=== PATIENT | female | born 1930 | race African-American/Black ===

== ENCOUNTER 2017-02-23 08:50 | Emergency (ER) | payer MEDICARE, OTHER ==
[2017-02-23 09:00] VITALS: BP 120/50
[2017-02-23] MEDS ORDERED: DEXAMETHASONE SOD PHOS INJ 10 MG/1 ML VIAL IM ONE (10:43)
[2017-02-23] MEDS ORDERED: HYDROCODONE/ACETAMINOPHEN 5-325 MG TABLET PO ONE (10:43)
--- NOTE | 2017-02-23 10:43 | ER Document Report ---
ED Extremity Problem, Lower - General Mode of Arrival: Wheelchair Information source: Patient TRAVEL OUTSIDE OF THE U.[place]. IN LAST 30 DAYS: No - HPI Patient complains to provider of: Pain, Swelling Location: Great Toe - Left Occurred: Yesterday Where: Home Onset/Duration: Gradual, Worse Context: Other - Gout Recent injury: No - General Chief Complaint: Toe Injury Stated Complaint: TOE PAIN Notes: Patient is an 86-year-old female presenting to the emergency department accompanied by her concerned of gout in her left big toe. Patient has a history of diabetes, and has had gout in the past. Patient's primary care physician, Dr. Obrien, told her that she could stop taking her gout medicine. Patient does not take insulin to control her diabetes, just takes metformin. Patient has not taken her blood sugar yet today, but states that yesterday her blood sugar was 125. (SANJUANA HOOD) - Related Data Allergies/Adverse Reactions: No Known Allergies Allergy (Verified 02/23/17 08:56) Past Medical History - General Information source: Patient - Social History Smoking Status: Unknown if Ever Smoked Chew tobacco use (# tins/day): No Frequency of alcohol use: None Drug Abuse: None Family History: Arthritis, CAD, Hyperlipidemia, Hypertension Patient has suicidal ideation: No Patient has homicidal ideation: No - Past Medical History Cardiac Medical History: Reports: Hx Hypercholesterolemia, Hx Hypertension Denies: Hx Heart Attack Pulmonary Medical History: Denies: Hx Asthma Neurological Medical History: Denies: Hx Seizures Endocrine Medical History: Reports: Hx Diabetes Mellitus Type 2 Renal/ Medical History: Denies: Hx Peritoneal Dialysis GI Medical History: Reports: Hx Gastroesophageal Reflux Disease. Denies: Hx Hepatitis, Hx Hiatal Hernia Musculoskeltal Medical History: Reports Hx Arthritis - RA, Reports Hx Gout, Reports Hx Musculoskeletal Deformity Infectious Medical History: Denies: Hx Hepatitis Past Surgical History: Reports: Hx Hysterectomy. Denies: Hx Mastectomy, Hx Pacemaker - Immunizations Immunizations up to date: Yes Hx Diphtheria, Pertussis, Tetanus Vaccination: Yes Review of Systems - Review of Systems Constitutional: No symptoms reported EENT: No symptoms reported Cardiovascular: No symptoms reported Respiratory: No symptoms reported Gastrointestinal: No symptoms reported Genitourinary: No symptoms reported Female Genitourinary: No symptoms reported Musculoskeletal: See HPI, Other - Left foot/big toe pain. Skin: No symptoms reported Hematologic/Lymphatic: No symptoms reported Neurological/Psychological: No symptoms reported -: Yes All other systems reviewed and negative Physical Exam - General General appearance: Appears well, Alert - HEENT Head: Normocephalic, Atraumatic Eyes: Normal Pupils: PERRL - Respiratory Respiratory status: No respiratory distress Chest status: Nontender Breath sounds: Normal - Cardiovascular Rhythm: Regular Heart sounds: Normal auscultation Murmur: No - - Abdominal Inspection: Normal Tenderness: Nontender - Back Back: Normal, Nontender - Extremities General upper extremity: Normal inspection, Nontender Foot: Tender - Left big toe erythema, hot to touch, swollen. Very tender to palpation. - Neurological Neuro grossly intact: Yes Cognition: Normal Orientation: AAOx4 [place] Coma Scale Eye Opening: Spontaneous Donald Coma Scale Verbal: Oriented [place] Coma Scale Motor: Obeys Commands [place] Coma Scale Total: 15 Speech: Normal - Psychological Associated symptoms: Normal affect, Normal mood - Skin Skin Temperature: Warm Skin Moisture: Dry Skin Color: Other - See foot exam. Course - Re-evaluation Re-evalutation: 02/23/17 20:03 I personally performed the services described in the documentation, reviewed and edited the documentation which was dictated to my scribe in my presence, and it accurately records my words and actions. History presents emergency, left great toe pain. She's been taken off her allopurinol. She denies fever or chills chest pain cough shortness breath or injury. Left great toe is red hot swollen x-ray consistent with likely gouty arthritis. No superficial spreading cellulitis or open lesions to the foot crepitus or necrosis. Good pulses and perfusion distally. Patient given [place] IM Decadron 5 days worth of prednisone which I told her would increase her sugar a little bit but would not put her in DKA also gave her pain medication for primary care physician to 3 days and start taking her allopurinol. Discussed reasons for ED return sooner (TODD HOUGH) - Vital Signs Vital signs: Temp Pulse Resp BP Pulse Ox 98.3 F 71 20 120/50 L 100 02/23/17 12:02 02/23/17 12:02 02/23/17 12:02 02/23/17 12:02 02/23/17 12:02 Discharge - Discharge Clinical Impression: acute gout left MTP joint Condition: Stable Disposition: HOME, SELF-CARE Additional Instructions: Gout You have been diagnosed as having gout. Gout is a problem caused by an excess of uric acid, a natural chemical found in the body. The cause of this disease is unknown. Gout arthritis occurs when crystals of uric acid form in the joints. The big toe is the most common joint involved, but any joint can become affected. Persons with gout may also form uric acid kidney stones, resulting in flank pain and blood in the urine. Nodules of uric acid may form under the skin. The first step of treatment is to decrease the inflammation in the joint with antiinflammatory medication. Medication to lower the uric acid level in the blood may then be prescribed. This medication should be taken regularly, as any sudden change in dosage may provoke an attack of gout. Some foods, such as red meat, can provoke an attack in some gout sufferers. Call the doctor if new symptoms arise, or if you do not improve. Prescriptions: Hydrocodone/Acetaminophen [[place] 5-325 mg Tablet] 1 tab PO TID #12 tablet Prednisone [Deltasone 20 mg Tablet] 3 tab PO DAILY 5 Days Referrals: JENELLE OBRIEN MD [Primary Care Provider] - Follow up in 3-5 days Scribe Documentation - Scribe Written by Sandra:: Sanjuana Hood 02/23/2017 1212 acting as scribe for :: Dr. Hough
== END 2017-02-23 12:07 | disposition home or self-care (01) ==
LOC: ER 08:50
DX: M10.9 Gout, unspecified (principal); E11.9 Type 2 diabetes mellitus without complications
CPT/HCPCS: 99283; 96372; 73630; J1100; A9270

== ENCOUNTER → 2017-03-02 | Outpatient (CLI) | payer MEDICARE, OTHER | LOC: OD 11:08 | PROVIDERS: ATTEND Family Medicine | DX: E11.9 Type 2 diabetes mellitus without complications (principal); M19.071 Primary osteoarthritis, right ankle and foot; M77.31 Calcaneal spur, right foot; M79.89 Other specified soft tissue disorders ==

== ENCOUNTER → 2017-04-07 | Outpatient (CLI) | payer MEDICARE, OTHER | LOC: RAD 07:04 | PROVIDERS: ATTEND Family Medicine | DX: R10.9 Unspecified abdominal pain (principal); R05 Cough | CPT/HCPCS: 71250; 74176 ==

== ENCOUNTER 2017-04-20 15:28 | Day surgery (SDC) | payer MEDICARE, OTHER ==
[~2017-04-20 15:28] MED LIST: EPINEPHRINE INJ 1 MG/10 ML DISP.SYRIN ONE; FENTANYL CITRATE INJ/PF 100 MCG/2 ML AMPUL ONE; FLUMAZENIL INJ 0.5 MG/5 ML VIAL IV ONE; GLUCAGON,HUMAN RECOMB 1 MG INJ ONE; MIDAZOLAM 2 MG/2 ML INJ ONE; NALOXONE HCL INJ/PF 0.4 MG/1 ML SDV ONE
[2017-04-20 18:55] VITALS: BP 147/88
--- NOTE | 2017-04-21 09:15 | OPERATIVE REPORT E ---
Operative Report NAME: ARA LOPEZ : 1930 AGE: 87Y DATE OF SURGERY: 04/20/2017 ROOM: PREOPERATIVE DIAGNOSES: 1. Epigastric pain. 2. Gallbladder disease. POSTOPERATIVE DIAGNOSIS: Normal EGD. OPERATION: EGD. SURGEON: CLARE PANIAGUA M.D. MEDICATION: 1. Versed 1 mg. 2. Fentanyl 25 mcg IV push. TISSUE REMOVED OR ALTERED: None. DESCRIPTION OF PROCEDURE: After informed consent obtained from patient, conscious sedation was achieved. The upper endoscope was inserted into esophageal mucosa and advanced into the stomach. The duodenum was normal. The gastric, antrum, body, fundus, and esophagus were normal. The patient tolerated the procedure well. PLAN: Proceed with surgical evaluation. DICTATING PHYSICIAN: CLARE PANIAGUA M.D. [id number] PHY#: [id number] ID: [id number] JOB#: [id number] ACCT: [id number] cc:CLARE PANIAGUA M.D., SWETANG M.D. >
== END 2017-04-20 19:00 | disposition home or self-care (01) ==
LOC: END 15:28
PROVIDERS: ATTEND Internal Medicine Gastroenterology
PROC: 0DJ08ZZ Inspection of Upper Intestinal Tract, Via Natural or Artificial Opening Endoscopic (ICD-10-PCS; principal; 2017-04-20 16:15)
DX: K82.9 Disease of gallbladder, unspecified (principal); R10.13 Epigastric pain; R14.0 Abdominal distension (gaseous); I10 Essential (primary) hypertension; E11.9 Type 2 diabetes mellitus without complications; M10.9 Gout, unspecified; E66.9 Obesity, unspecified; Z79.899 Other long term (current) drug therapy; Z68.32 Body mass index [BMI] 32.0-32.9, adult; Z79.82 Long term (current) use of aspirin
CPT/HCPCS: 43235; 82962; J2250; J0171; J3010; J1610; J2310; J3490

== ENCOUNTER 2017-08-14 09:36 | Emergency (ER) | payer MEDICARE, OTHER ==
[2017-08-14] MEDS ORDERED: NORMAL SALINE 1000 ML 1,000 ML IV ONE (10:33)
--- NOTE | 2017-08-14 10:34 | ER Document Report ---
ED Medical Screen (RME) - General Chief Complaint: Black/Tarry Stools Stated Complaint: STOMACH PAIN Time Seen by Provider: 08/14/17 10:26 TRAVEL OUTSIDE OF THE [place] IN LAST 30 DAYS: No - HPI Patient complains to provider of: Left lower quadrant pain with black tarry stools - Related Data Allergies/Adverse Reactions: No Known Allergies Allergy (Verified 04/20/17 15:56) Past Medical History - Social History Chew tobacco use (# tins/day): No Frequency of alcohol use: None Drug Abuse: None - Past Medical History Cardiac Medical History: Reports: Hx Hypercholesterolemia, Hx Hypertension Denies: Hx Coronary Artery Disease, Hx Heart Attack Pulmonary Medical History: Denies: Hx Asthma, Hx Bronchitis, Hx COPD, Hx Pneumonia Neurological Medical History: Denies: Hx Cerebrovascular Accident, Hx Seizures Endocrine Medical History: Reports: Hx Diabetes Mellitus Type 2 Renal/ Medical History: Denies: Hx Peritoneal Dialysis GI Medical History: Reports: Hx Gastroesophageal Reflux Disease. Denies: Hx Hepatitis, Hx Hiatal Hernia Musculoskeltal Medical History: Reports Hx Arthritis - RA, Reports Hx Gout, Reports Hx Musculoskeletal Deformity Infectious Medical History: Denies: Hx Hepatitis Past Surgical History: Reports: Hx Hysterectomy. Denies: Hx Mastectomy, Hx Pacemaker - Immunizations Immunizations up to date: Yes Hx Diphtheria, Pertussis, Tetanus Vaccination: Yes Review of Systems - Review of Systems Gastrointestinal: Abdominal pain, Black stools Physical Exam - Vital signs Vitals: Temp Pulse Resp BP Pulse Ox 97.7 F 68 16 116/58 L 100 08/14/17 09:38 08/14/17 09:38 08/14/17 09:38 08/14/17 09:38 08/14/17 09:38 - Abdominal Inspection: Normal Distension: No distension Bowel sounds: Normal Tenderness: Nontender Course - Re-evaluation Re-evalutation: 08/14/17 10:34 Patient states no blood thinning medication except for aspirin. - Vital Signs Vital signs: Temp Pulse Resp BP Pulse Ox 97.7 F 68 16 116/58 L 100 08/14/17 09:38 08/14/17 09:38 08/14/17 10:21 08/14/17 09:38 08/14/17 09:38
[2017-08-14 10:55] LABS: ABSOLUTE EOSINOPHILS # (AUTO) 0.1 10^3/uL (0.0-0.6); ABSOLUTE LYMPHOCYTES (AUTO) 0.9 10^3/uL (0.5-4.7); ABSOLUTE MONOCYTES (AUTO) 0.4 10^3/uL (0.1-1.4); ABSOLUTE NEUT (AUTO) 2.7 10^3/uL (1.7-8.2); BASOPHILS % (AUTO) 1.2 % (0-2); EOSINOPHILS % (AUTO) 2.7 % (0-6); HEMATOCRIT 37.6 % (36.0-47.0); HGB HCT DIFFERENCE -1.6; LYMPHOCYTES % (AUTO) 21.1 % (13-45); MEAN CORPUSCULAR HEMOGLOBIN 28.5 pg (27.0-33.4); MEAN CORPUSCULAR VOLUME 89 fl (80-97); MONOCYTES % (AUTO) 10.3 % (3-13); RED BLOOD COUNT 4.22 10^6/uL (3.72-5.28); RED CELL DISTRIBUTION WIDTH 16.8 % (11.5-14.0); SEGMENTED NEUTROPHILS % (AUTO) 64.7 % (42-78); WHITE BLOOD COUNT 4.2 10^3/uL (4.0-10.5)
--- NOTE | 2017-08-14 10:56 | ER Document Report ---
ED GI Bleed / Rectal Pain - General Chief Complaint: Black/Tarry Stools Stated Complaint: STOMACH PAIN Time Seen by Provider: 08/14/17 10:26 Mode of Arrival: Ambulatory Information source: Patient TRAVEL OUTSIDE OF THE [place] IN LAST 30 DAYS: No - HPI Patient complains to provider of: Dark/tarry stools Onset: This morning - PRECEDED SEVERAL DAYS BY MILD ABD. DISCOMFORT Quality of pain: Achy, Dull Severity of symptoms: Mild Last bowel movement: THIS AM Dark Stools: Black Rectal foreign body: No Use of: denies: Warfarin, Plavix, ASA, Lovenox, Pradaxa, NSAIDS, ETOH Exacerbated by: Denies Relieved by: Denies Similar symptoms previously: No Recently seen / treated by doctor: Yes - 08/11, BEGUN ON CIPRO & METRONIDAZOLE - Related Data Allergies/Adverse Reactions: No Known Allergies Allergy (Verified 04/20/17 15:56) Past Medical History - General Information source: Patient - Social History Smoking Status: Never Smoker Chew tobacco use (# tins/day): No Frequency of alcohol use: None Drug Abuse: None Family History: Arthritis, CAD, Hyperlipidemia, Hypertension Patient has suicidal ideation: No Patient has homicidal ideation: No - Past Medical History Cardiac Medical History: Reports: Hx Hypercholesterolemia, Hx Hypertension Denies: Hx Coronary Artery Disease, Hx Heart Attack Pulmonary Medical History: Denies: Hx Asthma, Hx Bronchitis, Hx COPD, Hx Pneumonia Neurological Medical History: Denies: Hx Cerebrovascular Accident, Hx Seizures Endocrine Medical History: Reports: Hx Diabetes Mellitus Type 2 Renal/ Medical History: Denies: Hx Peritoneal Dialysis GI Medical History: Reports: Hx Gastroesophageal Reflux Disease. Denies: Hx Hepatitis, Hx Hiatal Hernia Musculoskeltal Medical History: Reports Hx Arthritis - RA, Reports Hx Gout, Reports Hx Musculoskeletal Deformity Psychiatric Medical History: Reports: None Infectious Medical History: Denies: Hx Hepatitis Past Surgical History: Reports: Hx Hysterectomy. Denies: Hx Mastectomy, Hx Pacemaker - Immunizations Immunizations up to date: Yes Hx Diphtheria, Pertussis, Tetanus Vaccination: Yes Review of Systems - Review of Systems Constitutional: No symptoms reported EENT: No symptoms reported Cardiovascular: No symptoms reported Respiratory: No symptoms reported Gastrointestinal: See HPI Genitourinary: No symptoms reported Female Genitourinary: Post menopausal Musculoskeletal: No symptoms reported Skin: No symptoms reported Neurological/Psychological: No symptoms reported Physical Exam - Vital signs Vitals: Temp Pulse Resp BP Pulse Ox 97.7 F 68 16 116/58 L 100 08/14/17 09:38 08/14/17 09:38 08/14/17 09:38 08/14/17 09:38 08/14/17 09:38 Interpretation: No: Hypertensive, Tachycardic, Tachypneic, Febrile - General General appearance: Appears well, Alert In distress: None - HEENT Head: Normocephalic Eyes: Normal Conjunctiva: Normal Ears: Normal Nasal: Normal Mouth/Lips: Normal Mucous membranes: Normal - Respiratory Respiratory status: No respiratory distress - Cardiovascular Rhythm: Regular Heart sounds: Normal auscultation Murmur: No - Abdominal Inspection: Normal Distension: No distension Bowel sounds: Normal Tenderness: Tender - SLIGHT, LLQ - Rectal Tenderness: No Stool: Other - NO STOOL RETRIEVED, MUCUS CLEAR. Hemorrhoids: External - Back Back: Normal - Extremities General upper extremity: Normal inspection General lower extremity: Normal inspection - Neurological Neuro grossly intact: Yes Cognition: Normal Orientation: AAOx4 - Psychological Associated symptoms: Normal affect, Normal mood - Skin Skin Temperature: Warm Skin Moisture: Dry Skin Color: Normal Skin Turgor: Elastic Course - Vital Signs Vital signs: Temp Pulse Resp BP Pulse Ox 97.7 F 68 16 116/58 L 100 08/14/17 09:38 08/14/17 09:38 08/14/17 10:21 08/14/17 09:38 08/14/17 09:38 - Laboratory Result Diagrams: 08/14/17 10:30 08/14/17 10:30 Laboratory results interpreted by me: 08/14/17 08/14/17 10:30 10:30 RDW 16.8 H BUN 35 H Est GFR ( Amer) 53 L Est GFR (Non-Af Amer) 44 L Glucose 180 H AST 146 H ALT 105 H Discharge - Discharge Clinical Impression: Colitis, Discoloration of stool Condition: Stable Disposition: HOME, SELF-CARE Instructions: Colitis, Nonspecific ([facility]), Metronidazole ([facility]), Ciprofloxacin ( [facility]) Additional Instructions: CONTINUE PRESENT MEDS. FOLLOW UP WITH DR. STUART SCHEDULED NEXT WEEK. RETURN TO E.R. IF PROBLEMS, ANY TIME. Referrals: JENELLE STUART MD [Primary Care Provider] - Follow up as needed
[2017-08-14 11:01] LABS: PARTIAL THROMBOPLASTIN TIME 28.4 SEC (23.5-35.8); PROTHROMBIN TIME 13.9 SEC (11.4-15.4)
[2017-08-14 11:16] LABS: ALANINE AMINOTRANSFERASE 105 U/L (9-52); ALBUMIN 4.4 g/dL (3.5-5.0); ALKALINE PHOSPHATASE 77 U/L (38-126); ANION GAP 12 (5-19); ASPARTATE AMINO TRANSFERASE 146 U/L (14-36); BILIRUBIN,DIRECT 0.4 mg/dL (0.0-0.4); BILIRUBIN,TOTAL 0.6 mg/dL (0.2-1.3); BLOOD UREA NITROGEN 35 mg/dL (7-20); CALCIUM 10.2 mg/dL (8.4-10.2); CARBON DIOXIDE 24 mmol/L (22-30); CHLORIDE 104 mmol/L (98-107); CREATININE RESULT 1.17 mg/dL (0.52-1.25); GLUCOSE 180 mg/dL (75-110); LIPASE 41.7 U/L (23-300); POTASSIUM 4.7 mmol/L (3.6-5.0); TOTAL PROTEIN 7.1 g/dL (6.3-8.2)
--- NOTE | 2017-08-14 13:31 | RADIOLOGY REPORT (SQ) ---
EXAM DESCRIPTION: CT ABD/PELVIS WITH IV ONLY COMPLETED DATE/TIME: 08/14/2017 1:05 pm REASON FOR STUDY: LLQ pain COMPARISON: 04/07/2017. TECHNIQUE: CT scan of the abdomen and pelvis performed using helical scanning technique with dynamic intravenous contrast injection. No oral contrast. Images reviewed with lung, soft tissue, and bone windows. Reconstructed coronal and sagittal MPR images reviewed. Delayed images for evaluation of the urinary system also acquired. All images stored on PACS. All CT scanners at this facility use dose modulation, iterative reconstruction, and/or weight based d osing when appropriate to reduce radiation dose to as low as reasonably achievable (ALARA). [facility]: Dose Right [facility]: CareDose [facility]: Dose Right [facility]: Teradose 4D [facility]: [employer] CONTRAST TYPE AND DOSE: contrast/concentration: Isovue 370.00 mg/ml; Total Contrast Delivered: 85.0 ml; Total Saline Delivered: 69.0 ml RENAL FUNCTION: BUN 35 creatinine 1.17. RADIATION DOSE: Up-to-date CT equipment and radiation dose reduction techniques were employed. CTDIv ol: 11.4 - 15.5 mGy. DLP: 1479 mGy-cm.. LIMITATIONS: None. FINDINGS: LOWER CHEST: No significant findings. Chronic scarring. No nodules or infiltrates. LIVER: Normal size. No masses. No dilated ducts. SPLEEN: Normal size. No focal lesions. PANCREAS: No masses. No significant calcifications. No adjacent inflammation or peripancreatic fluid collections. Pancreatic duct not dilated. GALLBLADDER: Again seen is abnormal appearance of the gallbladder. Dense calcification in the gallbl adder fundus with irregular wall thickening and linear septations. No pericholecystic fluid. ADRENAL GLANDS: No significant masses or asymmetry. RIGHT KIDNEY AND URETER: No solid masses. No significant calcifications. No hydronephrosis or hyd roureter. LEFT KIDNEY AND URETER: No solid masses. No significant calcifications. No hydronephrosis or hydr oureter. AORTA AND VESSELS: No aneurysm. No dissection. Renal arteries, SMA, celiac without stenosis. RETROPERITONEUM: No retroperitoneal adenopathy, hemorrhage or masses. BOWEL AND PERITONEAL CAVITY: No masses or inflammatory changes. No free fluid or peritoneal masses. APPENDIX: Normal. PELVIS: No mass. No free fluid. Normal bladder. ABDOMINAL WALL: No masses. No hernias. BONES: No significant or acute findings. Degenerative changes in the spine. OTHER: No other significant finding. IMPRESSION: 1. PERSISTENT ABNORMAL APPEARANCE OF THE GALLBLADDER DESCRIBED. MAY BE ONLY DUE TO CHRONIC GALLBL ADDER DISEASE BUT SOFT TISSUE MASS NOT EXCLUDED. 2. NO OTHER SIGNIFICANT OR ACUTE FINDING IN THE ABDOMEN OR PELVIS ON CT SCAN WITH IV CONTRAST. TECHNICAL DOCUMENTATION: JOB ID: [id number] Quality ID # [id number]: Final reports with documentation of one or more dose reduction techniques (e.g., Au tomated exposure control, adjustment of the mA and/or kV according to patient size, use of iterative reconstruction technique) 2010 [employer]- All Rights Reserved
[2017-08-14 14:17] VITALS: BP 142/64
== END 2017-08-14 14:34 | disposition home or self-care (01) ==
LOC: ER 09:36
DX: K52.9 Noninfective gastroenteritis and colitis, unspecified (principal); R19.5 Other fecal abnormalities; E78.00 Pure hypercholesterolemia, unspecified; I10 Essential (primary) hypertension; E11.9 Type 2 diabetes mellitus without complications; K21.9 Gastro-esophageal reflux disease without esophagitis; M06.9 Rheumatoid arthritis, unspecified; Z90.710 Acquired absence of both cervix and uterus
CPT/HCPCS: 99285; 96360; 86900; 86901; 36415; 86850; 83690; 85025; 85610; 85730; 80053; 83605; 74177; J7030

== ENCOUNTER 2017-08-21 13:54 | Emergency (ER) | payer MEDICARE, OTHER ==
[2017-08-21 14:01] VITALS: BP 135/97
--- NOTE | 2017-08-21 14:41 | ER Document Report ---
ED General - General Chief Complaint: Sore Throat Stated Complaint: SORE THROAT Time Seen by Provider: 08/21/17 14:37 Mode of Arrival: Ambulatory Information source: Patient Notes: 87-year-old female presents with complaints of sore throat for 5 day duration. Patient admits to chills denies any fevers. Patient notes it is difficult to swallow due to the pain TRAVEL OUTSIDE OF THE [place] IN LAST 30 DAYS: No - HPI Onset: Last week Onset/Duration: Persistent, Better Quality of pain: Sharp Severity: Mild Pain Level: 1 Associated symptoms: Chills, Sore throat Exacerbated by: Food Relieved by: Denies Similar symptoms previously: No Recently seen / treated by doctor: No - Related Data Allergies/Adverse Reactions: No Known Allergies Allergy (Verified 08/21/17 14:00) Past Medical History - Social History Smoking Status: Never Smoker Cigarette use (# per day): No Chew tobacco use (# tins/day): No Smoking Education Provided: No Family History: Arthritis, CAD, Hyperlipidemia, Hypertension - Past Medical History Cardiac Medical History: Reports: Hx Hypercholesterolemia, Hx Hypertension Denies: Hx Coronary Artery Disease, Hx Heart Attack Pulmonary Medical History: Denies: Hx Asthma, Hx Bronchitis, Hx COPD, Hx Pneumonia Neurological Medical History: Denies: Hx Cerebrovascular Accident, Hx Seizures Endocrine Medical History: Reports: Hx Diabetes Mellitus Type 2 Renal/ Medical History: Denies: Hx Peritoneal Dialysis GI Medical History: Reports: Hx Gastroesophageal Reflux Disease. Denies: Hx Hepatitis, Hx Hiatal Hernia Musculoskeltal Medical History: Reports Hx Arthritis - RA, Reports Hx Gout, Reports Hx Musculoskeletal Deformity Infectious Medical History: Denies: Hx Hepatitis Past Surgical History: Reports: Hx Hysterectomy. Denies: Hx Mastectomy, Hx Pacemaker - Immunizations Immunizations up to date: Yes Hx Diphtheria, Pertussis, Tetanus Vaccination: Yes Review of Systems - Review of Systems Notes: REVIEW OF SYSTEMS: CONSTITUTIONAL : Denies fever, chills, or sweats. Denies recent illness. EENT: Admits to sore throat CARDIOVASCULAR: Denies chest pain. Denies palpitations or racing or irregular heart beat. Denies ankle edema. RESPIRATORY: Denies cough, cold, or chest congestion. Denies shortness of breath, difficulty breathing, or wheezing. GASTROINTESTINAL: Denies abdominal pain or distention. Denies nausea, vomiting , or diarrhea. Denies blood in vomitus, stools, or per rectum. Denies black, tarry stools. Denies constipation. GENITOURINARY: Denies difficulty urinating, painful urination, burning, frequency, blood in urine, or discharge. FEMALE GENITOURINARY: Denies vaginal bleeding, heavy or abnormal periods, irregular periods. Denies vaginal discharge or odor. MUSCULOSKELETAL: Denies back or neck pain or stiffness. Denies joint pain or swelling. SKIN: Denies rash, lesions or sores. HEMATOLOGIC : Denies easy bruising or bleeding. LYMPHATIC: Denies swollen, enlarged glands. NEUROLOGICAL: Denies confusion or altered mental status. Denies passing out or loss of consciousness. Denies dizziness or lightheadedness. Denies headache. Denies weakness or paralysis or loss of use of either side. Denies problems with gait or speech. Denies sensory loss, numbness, or tingling. Denies seizures. PSYCHIATRIC: Denies anxiety or stress. Denies depression, suicidal ideation, or homicidal ideation. ALL OTHER SYSTEMS REVIEWED AND NEGATIVE. PHYSICAL EXAMINATION: GENERAL: Well-appearing, well-nourished and in no acute distress. HEAD: Atraumatic, normocephalic. EYES: Pupils equal round and reactive to light, extraocular movements intact, conjunctiva are normal. ENT: No exudates are noted uvula is midline but swollen NECK: Normal range of motion, supple without lymphadenopathy LUNGS: Breath sounds clear to auscultation bilaterally and equal. No wheezes rales or rhonchi. HEART: Regular rate and rhythm without murmurs ABDOMEN: Soft, nontender, nondistended abdomen. No guarding, no rebound. No masses appreciated. Female : deferred Musculoskeletal: Normal range of motion, no pitting or edema. No cyanosis. NEUROLOGICAL: Cranial nerves grossly intact. Normal speech, normal gait. Normal sensory, motor exams PSYCH: Normal mood, normal affect. SKIN: Warm, Dry, normal turgor, no rashes or lesions noted. Dictation was performed using [employer] voice recognition software Physical Exam - Vital signs Vitals: Temp Pulse Resp BP Pulse Ox 99.8 F 85 20 135/97 H 100 08/21/17 13:59 08/21/17 13:59 08/21/17 13:59 08/21/17 13:59 08/21/17 13:59 Course - Re-evaluation Re-evalutation: 08/21/17 14:43 Rapid strep pending 08/21/17 19:02 Rapid strep was negative patient was given shot of Decadron Toradol and notes significant improvement of symptoms. Patient otherwise in no distress. I believe the patient's uvulitis is secondary to a viral syndrome. She has no signs of throat cancer given that symptoms started in the past few days and is associated with uvular edema There is no peritonsillar abscess noted After performing a Medical Screening Examination, I estimate there is LOW risk for CENTRAL CORD SYNDROME, EPIDURAL MASS LESION, SEVERE SPINAL STENOSIS, ARTERIAL DISSECTION, MENINGITIS, or ACUTE CORONARY SYNDROME, thus I consider the discharge disposition reasonable. I have reevaluated this patient multiple times and no significant life threatening changes are noted. The patient and I have discussed the diagnosis and risks, and we agree with discharging home to follow-up on an outpatient basis with the understanding that symptoms and presentations can change. We also discussed returning to the Emergency Department immediately if new or worsening symptoms occur. We have discussed the symptoms which are most concerning (e.g., saddle anesthesia, urinary or bowel incontinence or retention, changing or worsening pain) that necessitate immediate return. - Vital Signs Vital signs: Temp Pulse Resp BP Pulse Ox 99.8 F 85 20 135/97 H 100 08/21/17 13:59 08/21/17 13:59 08/21/17 13:59 08/21/17 13:59 08/21/17 13:59 Discharge - Discharge Clinical Impression: Uvulitis Difficulty swallowing Qualifiers: Dysphagia type: oral phase Qualified Code(s): R13.11 - Dysphagia, oral phase Condition: Stable Disposition: HOME, SELF-CARE Additional Instructions: Please contact the following office for an appointment tomorrow or returm immediately if there are any other concerns [facility] Director Of Search Engine Marketing Address: [address] [place], [place] [id number] Prescriptions: Prednisone [Deltasone 20 mg Tablet] 3 tab PO DAILY 5 Days tablet Referrals: JENELLE STUART MD [Primary Care Provider] - Follow up as needed
[2017-08-21] MEDS ORDERED: KETOROLAC TROMETHAMINE 60 MG/2 ML SDV IM ONE (15:23)
[2017-08-21] MEDS ORDERED: DEXAMETHASONE SOD PHOS INJ 10 MG/1 ML VIAL IM ONE (15:23)
== END 2017-08-21 16:35 | disposition home or self-care (01) ==
LOC: ER 13:54
DX: R13.11 Dysphagia, oral phase (principal); J02.9 Acute pharyngitis, unspecified
CPT/HCPCS: 99283; 96372; 87070; 87880; J1885; J1100

== ENCOUNTER 2017-08-22 09:57 | Emergency (ER) | payer MEDICARE, OTHER ==
--- NOTE | 2017-08-22 10:22 | ER Document Report ---
ED Medical Screen (RME) - General Chief Complaint: Bloody Stools Stated Complaint: RECTAL BLEEDING Time Seen by Provider: 08/22/17 10:12 Mode of Arrival: Wheelchair Information source: Patient Notes: 87 yr old female who was seen yesterday for sore throat diagnosed with uvulitis presents with separate complaint. Pt notes improvement of her throat with the steroids but notes now she had bright red blood per rectum after her 3rd bowel movement pt denies any abd pain I have greeted and performed a rapid initial assessment of this patient. A comprehensive ED assessment and evaluation of the patient, analysis of test results and completion of the medical decision making process will be conducted by additional ED providers. PHYSICAL EXAMINATION: GENERAL: Well-appearing, well-nourished and in no acute distress. HEAD: Atraumatic, normocephalic. EYES: Pupils equal round extraocular movements intact, conjunctiva are normal. ENT: Nares patent, uvual mildly edematous NECK: Normal range of motion LUNGS: No respiratory distress Musculoskeletal: Normal range of motion NEUROLOGICAL: Normal speech, normal gait. PSYCH: Normal mood, normal affect. SKIN: Warm, Dry, normal turgor, no rashes or lesions noted. TRAVEL OUTSIDE OF THE [place] IN LAST 30 DAYS: No - Related Data Allergies/Adverse Reactions: No Known Allergies Allergy (Verified 08/22/17 10:00) Past Medical History - Social History Frequency of alcohol use: None Drug Abuse: None - Past Medical History Cardiac Medical History: Reports: Hx Hypercholesterolemia, Hx Hypertension Denies: Hx Coronary Artery Disease, Hx Heart Attack Pulmonary Medical History: Denies: Hx Asthma, Hx Bronchitis, Hx COPD, Hx Pneumonia Neurological Medical History: Denies: Hx Cerebrovascular Accident, Hx Seizures Endocrine Medical History: Reports: Hx Diabetes Mellitus Type 2 Renal/ Medical History: Denies: Hx Peritoneal Dialysis GI Medical History: Reports: Hx Gastroesophageal Reflux Disease. Denies: Hx Hepatitis, Hx Hiatal Hernia Musculoskeltal Medical History: Reports Hx Arthritis - RA, Reports Hx Gout, Reports Hx Musculoskeletal Deformity Infectious Medical History: Denies: Hx Hepatitis Past Surgical History: Reports: Hx Hysterectomy. Denies: Hx Mastectomy, Hx Pacemaker - Immunizations Immunizations up to date: Yes Hx Diphtheria, Pertussis, Tetanus Vaccination: Yes Physical Exam - Vital signs Vitals: Temp Pulse Resp BP Pulse Ox 97.4 F 74 18 145/61 H 100 08/22/17 10:01 08/22/17 10:01 08/22/17 10:01 08/22/17 10:01 08/22/17 10:01 Course - Vital Signs Vital signs: Temp Pulse Resp BP Pulse Ox 97.4 F 74 18 145/61 H 100 08/22/17 10:01 08/22/17 10:01 08/22/17 10:01 08/22/17 10:01 08/22/17 10:01
[2017-08-22] MEDS ORDERED: NORMAL SALINE 500 ML IV PRN (10:57)
--- NOTE | 2017-08-22 10:57 | ER Document Report ---
ED General - General Chief Complaint: Bloody Stools Stated Complaint: RECTAL BLEEDING Time Seen by Provider: 08/22/17 10:12 Mode of Arrival: Wheelchair Information source: Patient Notes: This is an 87-year-old female with a history of hypertension, gout and diabetes who presents to the emergency room because she noticed blood when she wiped after bowel movement. Patient states she was here yesterday for sore throat and was placed on prednisone. She states that the sore throat has gotten better and she is able to drink fluids and soup. Currently she denies any difficulty swallowing. Currently she denies any abdominal pain. She denies any vomiting. Medications: Colchicine, aspirin, prednisone, allopurinol, Lasix, Glipizide, enalapril, hydralazine. Past surgical history: Hysterectomy No known drug allergies TRAVEL OUTSIDE OF THE [place] IN LAST 30 DAYS: No - HPI Onset: Yesterday Onset/Duration: Gradual Quality of pain: No pain Severity: None Pain Level: Denies Associated symptoms: denies: Chest pain, Fever, Shortness of breath Exacerbated by: Denies Relieved by: Denies Similar symptoms previously: Yes Recently seen / treated by doctor: Yes - Related Data Allergies/Adverse Reactions: No Known Allergies Allergy (Verified 08/22/17 10:00) Past Medical History - General Information source: Patient - Social History Smoking Status: Never Smoker Cigarette use (# per day): No Chew tobacco use (# tins/day): No Frequency of alcohol use: None Drug Abuse: None Lives with: Family Family History: Arthritis, CAD, Hyperlipidemia, Hypertension Patient has suicidal ideation: No Patient has homicidal ideation: No - Past Medical History Cardiac Medical History: Reports: Hx Hypercholesterolemia, Hx Hypertension Denies: Hx Coronary Artery Disease, Hx Heart Attack Pulmonary Medical History: Denies: Hx Asthma, Hx Bronchitis, Hx COPD, Hx Pneumonia Neurological Medical History: Denies: Hx Cerebrovascular Accident, Hx Seizures Endocrine Medical History: Reports: Hx Diabetes Mellitus Type 2 Renal/ Medical History: Denies: Hx Peritoneal Dialysis GI Medical History: Reports: Hx Gastroesophageal Reflux Disease. Denies: Hx Hepatitis, Hx Hiatal Hernia Musculoskeltal Medical History: Reports Hx Arthritis - RA, Reports Hx Gout, Reports Hx Musculoskeletal Deformity Infectious Medical History: Denies: Hx Hepatitis Past Surgical History: Reports: Hx Hysterectomy. Denies: Hx Mastectomy, Hx Pacemaker - Immunizations Immunizations up to date: Yes Hx Diphtheria, Pertussis, Tetanus Vaccination: Yes Review of Systems - Review of Systems Constitutional: denies: Chills, Fever EENT: See HPI Cardiovascular: No symptoms reported Respiratory: No symptoms reported Gastrointestinal: See HPI Genitourinary: No symptoms reported Female Genitourinary: No symptoms reported Musculoskeletal: See HPI Skin: No symptoms reported Hematologic/Lymphatic: No symptoms reported Neurological/Psychological: No symptoms reported Physical Exam - Vital signs Vitals: Temp Pulse Resp BP Pulse Ox 97.4 F 74 18 145/61 H 100 08/22/17 10:01 08/22/17 10:01 08/22/17 10:01 08/22/17 10:01 08/22/17 10:01 Notes: Physical exam: GENERAL: 87-year-old female, alert and oriented 3, no acute distress HEAD: Atraumatic, normocephalic. EYES: Pupils equal round and reactive to light, extraocular movements intact, sclera anicteric, conjunctiva are normal. ENT: Nares patent, oropharynx clear without exudates. Dry erythema on the posterior pharynx without obvious swelling. Mucous membranes. NECK: Normal range of motion, supple without obvious mass or JVD. LUNGS: Breath sounds clear to auscultation bilaterally and equal. No wheezes rales or rhonchi. HEART: Regular rate and rhythm without murmurs, rubs or gallops. ABDOMEN: Soft, normoactive bowel sounds. No tenderness to palpation. No guarding, no rebound. No masses appreciated. Vaginal: Patient has a prolapsed bladder which is reducible. There is no obvious bleeding from the vaginal canal. Rectal: Patient has brown stool. There are no masses palpable. EXTREMITIES: Normal range of motion, no pitting or edema. No clubbing or cyanosis. NEUROLOGICAL: Cranial nerves II through XII grossly intact. Normal speech, moving all extremities. PSYCH: Normal mood, normal affect. SKIN: Warm, Dry, normal turgor, no rashes or lesions noted. Course - Re-evaluation Re-evalutation: 08/22/17 13:54 I discussed case with Dr. Stuart who was going to see the office tomorrow. I did discuss the bladder issue with the urologist on-call (Dr. Van) and he said that the operations leader will also fit for pessaries in their clinic. I discussed this with Dr. Florian and she said yes she is happy to see the patient in the clinic. I have discussed this with the patient as well as Dr. Stuart and Dr. Stuart will discuss it with the patient tomorrow in the office. In the meantime, we will give her some penicillin. - Vital Signs Vital signs: Temp Pulse Resp BP Pulse Ox 97.8 F 80 20 144/68 H 97 08/22/17 15:19 08/22/17 15:19 08/22/17 15:19 08/22/17 15:19 08/22/17 15:19 - Laboratory Result Diagrams: 08/22/17 11:13 08/22/17 11:13 Laboratory results interpreted by me: 08/22/17 08/22/17 08/22/17 11:13 11:13 11:27 RDW 16.6 H Seg Neutrophils % 85.1 H Lymphocytes % 9.0 L BUN 35 H Creatinine 1.28 H Est GFR ( Amer) 48 L Est GFR (Non-Af Amer) 39 L Glucose 196 H AST 47 H ALT 82 H Urine Glucose (UA) >=500 H Discharge - Discharge Clinical Impression: Strep throat, Bladder prolapse Condition: Stable Disposition: HOME, SELF-CARE Additional Instructions: Thank you for choosing [facility] for your care. The examination and treatment you have received in the Emergency Department today has been rendered on an emergency basis only and is not intended to be a substitute for complete medical care. You should contact your follow-up physician as it is important that he or she examine you for any new or remaining problems. If given a copy of any lab tests or radiology reports, please bring them with you when you see your physician. If your problem worsens or new symptoms appear and you are unable to arrange prompt follow-up care, return to the Emergency Department. Specific signs to look out for: Or any concerns getting worse worsening sore throat, difficulty swallowing Any other instructions: You can stop the prednisone today. (You do not need to take anymore doses). Your throat swab was positive for strep and we are treating you with an antibiotic. He received a shot of penicillin in the emergency room and do not need to start your antibiotics till the morning. Dr. Stuart wants to see you in the office tomorrow. You do have a bladder prolapse in the operations leader will sometimes fit you for a pessary to treat this. Discussed this with Dr. Stuart. Dr. Gutierrez Stuart [address] , [place] [address] [phone] Prescriptions: Penicillin V Potassium [Penicillin Vk 500 mg Tablet] 500 mg PO QID #28 tablet Referrals: GUTIERREZ STUART MD [Primary Care Provider] - Follow up as needed
[2017-08-22 11:45] LABS: ABSOLUTE LYMPHOCYTES (AUTO) 0.6 10^3/uL (0.5-4.7); ABSOLUTE MONOCYTES (AUTO) 0.4 10^3/uL (0.1-1.4); ABSOLUTE NEUT (AUTO) 5.4 10^3/uL (1.7-8.2); BASOPHILS % (AUTO) 0.2 % (0-2); EOSINOPHILS % (AUTO) 0.1 % (0-6); HEMOGLOBIN 12.5 g/dL (12.0-15.5); HGB HCT DIFFERENCE -0.5; MEAN CORPUSCULAR HEMOGLOBIN 29.2 pg (27.0-33.4); MEAN CORPUSCULAR VOLUME 89 fl (80-97); MONOCYTES % (AUTO) 5.6 % (3-13); RED BLOOD COUNT 4.29 10^6/uL (3.72-5.28); RED CELL DISTRIBUTION WIDTH 16.6 % (11.5-14.0); SEGMENTED NEUTROPHILS % (AUTO) 85.1 % (42-78); WHITE BLOOD COUNT 6.3 10^3/uL (4.0-10.5)
[2017-08-22 11:54] LABS: ALANINE AMINOTRANSFERASE 82 U/L (9-52); ALBUMIN 4.1 g/dL (3.5-5.0); ALKALINE PHOSPHATASE 77 U/L (38-126); ANION GAP 14 (5-19); ASPARTATE AMINO TRANSFERASE 47 U/L (14-36); BILIRUBIN,DIRECT 0.4 mg/dL (0.0-0.4); BILIRUBIN,TOTAL 0.4 mg/dL (0.2-1.3); BLOOD UREA NITROGEN 35 mg/dL (7-20); CALCIUM 9.9 mg/dL (8.4-10.2); CARBON DIOXIDE 22 mmol/L (22-30); CHLORIDE 105 mmol/L (98-107); CREATININE RESULT 1.28 mg/dL (0.52-1.25); GLUCOSE 196 mg/dL (75-110); POTASSIUM 4.4 mmol/L (3.6-5.0); SODIUM 140.5 mmol/L (137-145); TOTAL PROTEIN 6.7 g/dL (6.3-8.2)
[2017-08-22 11:55] LABS: APPEARANCE,URINE SLIGHTLY-CLOUDY; BILIRUBIN,URINE NEGATIVE (NEGATIVE); GLUCOSE, URINE >=500 mg/dL (NEGATIVE); KETONES,URINE NEGATIVE (NEGATIVE); LEUKOCYTE ESTERASE,URINE NEGATIVE (NEGATIVE); NITRITE,URINE NEGATIVE (NEGATIVE); PROTEIN,URINE NEGATIVE (NEGATIVE); URINE SPECIFIC GRAVITY 1.013; UROBILINOGEN,URINE NEGATIVE mg/dL (<2.0)
[2017-08-22] MEDS ORDERED: PENICILLIN G BENZATHINE 1.2 MILLION UNIT/2 ML DISP.SYRIN IM ONE (13:49)
[2017-08-22 15:21] VITALS: BP 144/68
== END 2017-08-22 15:21 | disposition home or self-care (01) ==
LOC: ER 09:57
DX: J02.0 Streptococcal pharyngitis (principal); N81.10 Cystocele, unspecified; I10 Essential (primary) hypertension; M10.9 Gout, unspecified; E11.9 Type 2 diabetes mellitus without complications; K21.9 Gastro-esophageal reflux disease without esophagitis; E78.00 Pure hypercholesterolemia, unspecified; Z90.710 Acquired absence of both cervix and uterus
CPT/HCPCS: 99283; 36415; 87880; 85025; 82272; 80053; 81001; J0561; J7040